=== PATIENT | female | born 1995 | race Caucasian/White ===

== ENCOUNTER 2017-08-11 23:01 | Emergency (ER) | payer SELFPAY ==
[~2017-08-11] VITALS: Ht 160 cm; Wt 53.5 kg
[2017-08-11 23:07] VITALS: Ht 160 cm; Wt 53.5 kg
--- NOTE | 2017-08-12 00:53 | ERD ---
ER Documentation Chief Complaint Chief Complaint LOWER ABD PAIN WITH DYSURIA/NAUSEA X 2 DAYS. POSS PREG. HEADACHES. HPI 22-year-old female presents here to emergency department for complaints of pelvic pain dysuria nausea for the last 2 days. Patient is complaining of breast tenderness. Patient last menstruation was 06/30/2017, late for her.. Patient's states that she may be . Patient is complaining of pelvic pain, cramping pain 4/10 scale, accompanied with dysuria. Patient is complaining of urinary urgency and frequency. Patient denies any vaginal bleeding vaginal discharge. ROS All systems reviewed and are negative except as per history of present illness. Medications Home Meds Active Scripts Acx20-Ifls-Gglap Acid (Prenata Chewable) 1 Each Tab.chew, 1 TAB PO DAILY, #30 TAB.CHEW Prov:PRICILLA ROSEN NP 08/12/17 Cephalexin* (Keflex*) 500 Mg Capsule, 500 MG PO QID for 10 Days, CAP Prov:PRICILLA ROSEN NP 08/12/17 Acetaminophen* (Tylophen*) 500 Mg Capsule, 1 CAP PO Q6H Y for PAIN AND OR ELEVATED TEMP, #20 CAP Prov:PRICILLA ROSEN NP 08/12/17 Reported Medications [none] Unknown Strength No Conflict Check 08/12/17 Allergies Allergies: Coded Allergies: No Known Allergy (Unverified , 08/11/17) PMhx/Soc Medical and Surgical Hx: pt denies Medical Hx, pt denies Surgical Hx Hx Alcohol Use: No Hx Substance Use: No Hx Tobacco Use: No Smoking Status: Never smoker FmHx Family History: No coronary disease, No diabetes, No other Physical Exam Vitals Vital Signs Date Time Temp Pulse Resp B/P Pulse Ox O2 Delivery O2 Flow Rate FiO2 08/11/17 23:07 98.8 96 18 109/69 99 Physical Exam GENERAL: The patient is well developed and appropriate for usual state of health, in no apparent distress. CHEST: Clear to auscultation bilaterally. There are no rales, wheezes or rhonchi. HEART: Regular rate and rhythm. No murmurs, clicks, rubs or gallops. No S3 or S4. ABDOMEN: Soft, nontender and nondistended. Good bowel sounds. No rebound or guarding. No gross peritonitis. No gross organomegaly or masses. No Silverman sign or McBurney point tenderness. BACK: No midline or flank tenderness. EXTREMITIES: Equal pulses bilaterally. There is no peripheral clubbing, cyanosis or edema. No focal swelling or erythema. Full range of motion. Grossly neurovascularly intact. NEURO: Alert and oriented. Cranial nerves 2-12 intact. Motor strength in all 4 extremities with 5/5 strength. Sensation grossly intact. Normal speech and gait. SKIN: There is no apparent rash or petechia. The skin is warm and dry. HEMATOLOGIC AND LYMPHATIC: There is no evidence of excessive bruising or lymphedema. No gross cervical, axillary, or inguinal lymphadenopathy. Result Diagram: 08/12/17 004 Results 24 hrs Laboratory Tests Test 08/12/17 00:30 08/12/17 00:42 Urine Color YELLOW Urine Clarity SLIGHTLY CLOUDY Urine pH 7.0 Urine Specific [place] 1.004 Urine Ketones NEGATIVEmg/dL Urine Nitrite NEGATIVEmg/dL Urine Bilirubin NEGATIVEmg/dL Urine Urobilinogen NEGATIVEmg/dL Urine Leukocyte Esterase 3+Priya/ul Urine Microscopic RBC 30/HPF Urine Microscopic WBC 45/HPF Urine Squamous Epithelial Cells MODERATE/HPF Urine Bacteria FEW/HPF Urine Hemoglobin NEGATIVEmg/dL Urine Glucose NEGATIVEmg/dL Urine Total Protein NEGATIVEmg/dl White Blood Count 7.610^3/ul Red Blood Count 4.4410^6/ul Hemoglobin 12.9g/dl Hematocrit 37.6% Mean Corpuscular Volume 84.7fl Mean Corpuscular Hemoglobin 29.1pg Mean Corpuscular Hemoglobin Concent 34.3g/dl Red Cell Distribution Width 12.7% Platelet Count 94428^3/UL Mean Platelet Volume 9.8fl Neutrophils % 53.8% Lymphocytes % 32.0% Monocytes % 8.7% Eosinophils % 4.5% Basophils % 0.9% Nucleated Red Blood Cells % 0.0/100WBC Neutrophils # 4.110^3/ul Lymphocytes # 2.410^3/ul Monocytes # 0.710^3/ul Eosinophils # 0.310^3/ul Basophils # 0.110^3/ul Nucleated Red Blood Cells # 0.010^3/ul Beta HCG, Quantitative 3454.8mIU/ml Current Medications Medications (Trade) Dose Ordered Sig/Joey Route PRN Reason Start Time Stop Time Status Last Admin Dose Admin Ceftriaxone Sodium (Rocephin) 1 gm ONCE ONCE IM 08/12/17 03:30 08/12/17 03:31 IM Rocephin was given here in emergency department for treatment for urinary tract infection. PROCEDURE: ULTRASOUND OBSTETRICAL CLINICAL INDICATION: 22-year-old female with pelvic pain. TECHNIQUE: Multiple sonographic images of the pelvis were obtained. The images were reviewed on a PACS workstation. COMPARISON: None. FINDINGS: There is a single intrauterine gestation. The mean sac diameter is 0.28 cm. This yields an estimated gestational age of 4 weeks and 6 days. The estimated date of delivery is April 07, 2018. There is no evidence for a pole. There is trace pelvic free fluid. The right ovary has a normal echotexture and measures 2.8 x 1.9 x 2.5 cm. The left ovary has a normal echotexture and measures 3.4 x 1.7 x 2.7 cm. There is normal flow to the ovaries bilaterally. No adnexal masses are noted. IMPRESSION: 1. Single early intrauterine gestation of approximately 4 weeks 6 days without evidence for a pole. Clinical correlation follow-up ultrasound is indicated. 2. Trace pelvic free fluid. .Jorge A Ibanez MD, MD Date Time Electronically viewed and signed by .Jorge A Ibanez MD, MD on 08/12/2017 03:02 .M/ CC: PRICILLA ROSEN LOOP DRIER OPERATOR Procedures/MDM Medical Decision Making: Patients symptoms are consistent with urinary tract infection. There is low suspicion for pyelonephritis. There is low suspicion for abdominal emergencies at this time. Patients abdominal exam is normal. There is low suspicion for sepsis. Patient appears well and is hemodynamically stable. Patient also had an incidental finding of , patient is 4 weeks . Beta-hCG is appropriate for . No symptoms of numbness of chorionic hemorrhage, no symptoms of any threatened . No symptoms of ectopic . Disposition: Home. Stable Prescription Keflex, Tylenol, pills Instructions: Patient is advised to take medications as prescribed. Patient is advised to rest, increase fluid intake and do good perineal hygiene. Patient is advised that if symptoms are worse, severe abdominal pain, uncontrolled vomiting , high fever, severe flank pain, worst signs and symptoms, to return to the emergency department immediately. Otherwise, patient can follow up with primary care doctor in 5-7 days. care with the OB doctor. Disclaimer: Inadvertent spelling and grammatical errors are likely due to EHR/ dictation software use and do not reflect on the overall quality of patient care. Also, please note that the electronic time recorded on this note does not necessarily reflect the actual time of the patient encounter. Departure Diagnosis: Primary Impression: UTI (urinary tract infection) Urinary tract infection type: acute cystitis Hematuria presence: with hematuria Qualified Code: N30.01 - Acute cystitis with hematuria Additional Impression: Incidental Condition: Stable Patient Instructions: Adapting to : First Trimester, Understanding Urinary Tract Infections (UTIs) Additional Instructions: Patient is advised to take medications as prescribed. Patient is advised to rest, increase fluid intake and do good perineal hygiene. Patient is advised that if symptoms are worse, severe abdominal pain, uncontrolled vomiting, high fever, severe flank pain, worst signs and symptoms, to return to the emergency department immediately. Otherwise, patient can follow up with primary care doctor in 5-7 days. care with the OB doctor. PRICILLA ROSEN NP Aug 12, 2017 00:53
[2017-08-12 01:05] LABS: BASOPHIL # 0.1 10^3/ul (0.0-0.1); BASOPHILS % 0.9 % (0.0-2.0); EOSINOPHILS # 0.3 10^3/ul (0.0-0.5); EOSINOPHILS % 4.5 % (0.0-7.0); HEMATOCRIT 37.6 % (37.0-47.0); HEMOGLOBIN 12.9 g/dl (12.0-16.0); LYMPHOCYTES # 2.4 10^3/ul (0.8-2.9); MEAN CORPUSCULAR HEMOGLOBIN 29.1 pg (29.0-33.0); MEAN CORPUSCULAR HGB CONC 34.3 g/dl (32.0-37.0); MEAN CORPUSCULAR VOLUME 84.7 fl (82.0-101.0); MEAN PLATELET VOLUME 9.8 fl (7.4-10.4); MONOCYTE # 0.7 10^3/ul (0.3-0.9); MONOCYTES % 8.7 % (0.0-11.0); NEUTROPHIL # 4.1 10^3/ul (1.6-7.5); NEUTROPHILS % 53.8 % (39.0-77.0); PLATELET COUNT 292 10^3/UL (140-415); RED BLOOD COUNT 4.44 10^6/ul (4.20-5.40); RED CELL DISTRIBUTION WIDTH 12.7 % (11.5-14.5); WHITE BLOOD COUNT 7.6 10^3/ul (4.8-10.8)
[2017-08-12 01:19] LABS: ADD UMIC YES; UR ASCORBIC ACID 20 mg/dL (NEGATIVE); UR BACTERIA FEW /HPF (NONE SEEN); UR BILIRUBIN (Dip) NEGATIVE (NEGATIVE); UR BLOOD (Dip) NEGATIVE (NEGATIVE); UR CLARITY SLIGHTLY CLOUDY (CLEAR); UR COLOR YELLOW (YELLOW); UR GLUCOSE (Dip) NEGATIVE (NEGATIVE); UR KETONES (Dip) NEGATIVE (NEGATIVE); UR LEUKOCYTE ESTERASE (Dip) 3+ Leu/ul (NEGATIVE); UR NITRITE (Dip) NEGATIVE (NEGATIVE); UR RBC 30 /HPF (0-5); UR SPECIFIC GRAVITY (Dip) 1.004 (1.003-1.030); UR SQUAMOUS EPITHELIAL CELL MODERATE /HPF (FEW); UR TOTAL PROTEIN (Dip) NEGATIVE (NEGATIVE); UR UROBILINOGEN (Dip) NEGATIVE (NEGATIVE)
--- NOTE | 2017-08-12 03:02 | RADRPT ---
PROCEDURE: ULTRASOUND OBSTETRICAL CLINICAL INDICATION: 22-year-old female with pelvic pain. TECHNIQUE: Multiple sonographic images of the pelvis were obtained. The images were reviewed on a PACS workstation. COMPARISON: None. FINDINGS: There is a single intrauterine gestation. The mean sac diameter is 0.28 cm. This yields an estimate d gestational age of 4 weeks and 6 days. The estimated date of delivery is April 07, 2018. There is n o evidence for a pole. There is trace pelvic free fluid. The right ovary has a normal echotex ture and measures 2.8 x 1.9 x 2.5 cm. The left ovary has a normal echotexture and measures 3.4 x 1.7 x 2.7 cm. There is normal flow to the ovaries bilaterally. No adnexal masses are noted. IMPRESSION: 1. Single early intrauterine gestation of approximately 4 weeks 6 days without evidence for a pole. Clinical correlation follow-up ultrasound is indicated. 2. Trace pelvic free fluid. .Jorge A Ibanez MD, MD Date Time Electronically viewed and signed by .Jorge A Ibanez MD, MD on 08/12/2017 03:02 .M/
[2017-08-12] MEDS ORDERED: CEPH-443 PO (03:08)
[2017-08-12] MEDS ORDERED: ACET500C5 PO (03:08)
[2017-08-12] MEDS ORDERED: PREN-47 PO (03:08)
[2017-08-12 03:25] VITALS: BP 92/56; PULSE 81; RESP 16
[2017-08-12] MEDS ORDERED: CEFTRIAXONE 1 GM INJ IM ONE (03:30)
== END 2017-08-12 03:30 | disposition home or self-care (01) ==
LOC: FTE 23:01
DX: O23.11 Infections of bladder in pregnancy, first trimester (principal); R10.2 Pelvic and perineal pain; Z3A.01 Less than 8 weeks gestation of pregnancy
CPT/HCPCS: 36415; 76801; 76817; 81001; 84702; 85025; 86900; 86901; 96372; 99285; J0696